=== PATIENT | female | born 1970 | race Caucasian/White ===

== ENCOUNTER 2016-05-02 17:08 | Outpatient (RCR) | payer OTHER ==
[2016-03-22 09:39] LABS: BASOPHILS % (AUTO) 1 % (0-10); EOSINOPHILS # (AUTO) 0.1 10^3/uL (0.0-0.3); EOSINOPHILS % (AUTO) 1 % (0-10); LYMPHOCYTES # (AUTO) 1.8 X 10^3 (1.0-4.0); LYMPHOCYTES % (AUTO) 29 % (12-44); MEAN CORPUSCULAR HEMOGLOBIN 32 PG (25-34); MEAN CORPUSCULAR HGB CONC 34 G/DL (32-36); MEAN CORPUSCULAR VOLUME 94 FL (80-99); MONOCYTES # (AUTO) 0.4 X 10^3 (0.0-1.0); MONOCYTES % (AUTO) 7 % (0-12); NEUTROPHILS # (AUTO) 3.9 X 10^3 (1.8-7.8); NEUTROPHILS % (AUTO) 62 % (42-75); PLATELET COUNT 271 10^3/uL (130-400); RED BLOOD COUNT 3.29 10^6/uL (4.35-5.85); RED CELL DISTRIBUTION WIDTH 12.6 % (10.0-14.5); WHITE BLOOD COUNT 6.2 10^3/uL (4.3-11.0)
[2016-03-22 10:01] LABS: ALANINE AMINOTRANSFERASE 16 U/L (0-55); ALBUMIN 4.2 G/DL (3.2-4.5); ANION GAP 7 MMOL/L (5-14); ASPARTATE AMINO TRANSFERASE 10 U/L (5-34); BILIRUBIN,TOTAL 0.2 MG/DL (0.1-1.0); BLOOD UREA NITROGEN 36 MG/DL (7-18); BUN/CREATININE RATIO 37; CALCIUM 9.3 MG/DL (8.5-10.1); CARBON DIOXIDE 25 MMOL/L (21-32); CHLORIDE 105 MMOL/L (98-107); CREATININE SERUM 0.98 MG/DL (0.60-1.30); GFR ESTIMATED > 60; GLUCOSE 103 MG/DL (70-105); POTASSIUM 5.6 MMOL/L (3.6-5.0); SODIUM 137 MMOL/L (135-145); TOTAL PROTEIN 6.6 G/DL (6.4-8.2)
[2016-03-22 10:18] LABS: ERYTHROCYTE SEDIMENTATION RATE 58 MM/HR (0-20)
[2016-04-29 13:16] LABS: BASOPHILS % (AUTO) 0 % (0-10); EOSINOPHILS # (AUTO) 0.1 10^3/uL (0.0-0.3); EOSINOPHILS % (AUTO) 1 % (0-10); LYMPHOCYTES % (AUTO) 30 % (12-44); MEAN CORPUSCULAR HEMOGLOBIN 31 PG (25-34); MEAN CORPUSCULAR HGB CONC 34 G/DL (32-36); MEAN CORPUSCULAR VOLUME 92 FL (80-99); MEAN PLATELET VOLUME 10.4 FL (7.4-10.4); MONOCYTES # (AUTO) 0.3 X 10^3 (0.0-1.0); MONOCYTES % (AUTO) 5 % (0-12); NEUTROPHILS # (AUTO) 4.3 X 10^3 (1.8-7.8); NEUTROPHILS % (AUTO) 65 % (42-75); PLATELET COUNT 246 10^3/uL (130-400); RED BLOOD COUNT 3.16 10^6/uL (4.35-5.85); RED CELL DISTRIBUTION WIDTH 12.2 % (10.0-14.5); WHITE BLOOD COUNT 6.7 10^3/uL (4.3-11.0)
[2016-04-29 13:48] LABS: ALANINE AMINOTRANSFERASE 11 U/L (0-55); ALBUMIN 4.1 G/DL (3.2-4.5); ANION GAP 7 MMOL/L (5-14); ASPARTATE AMINO TRANSFERASE 12 U/L (5-34); BILIRUBIN,TOTAL 0.2 MG/DL (0.1-1.0); BLOOD UREA NITROGEN 28 MG/DL (7-18); BUN/CREATININE RATIO 33; CALCIUM 9.3 MG/DL (8.5-10.1); CARBON DIOXIDE 24 MMOL/L (21-32); CHLORIDE 106 MMOL/L (98-107); CREATININE SERUM 0.85 MG/DL (0.60-1.30); GFR ESTIMATED > 60; GLUCOSE 111 MG/DL (70-105); POTASSIUM 5.1 MMOL/L (3.6-5.0); SODIUM 137 MMOL/L (135-145); TOTAL PROTEIN 6.4 G/DL (6.4-8.2)
[2016-04-29 15:30] LABS: %SAT TOTAL IRON BINDING CAPIC 24 % (15-50); TIBC 257 ug/dL (280-380)
[2016-04-29 16:29] LABS: UIBC 196 ug/dL (55-450)
[2016-04-30 07:12] LABS: FERRITIN 380 ng/mL (15-150)
[~2016-05-02 17:08] MED LIST: ALLO100T PO; ETD400T; LISI1TAB10 PO; LISI1TAB6 PO; LISI40TA PO; METF-380 PO; METH4TAB; MULT1CAP27 PO; NEBI5TAB8 PO; OMG1KC PO; TRAM50TA2 PO; UBID100C44 PO
== END 2016-06-20 | disposition home or self-care (01) ==
LOC: ONC 17:08
PROVIDERS: ATTEND Internal Medicine Hematology & Oncology
DX: D50.9 Iron deficiency anemia, unspecified (principal)
CPT/HCPCS: 36415; 80053; 82668; 82728; 83540; 85025; 85652; 99213

== ENCOUNTER 2019-03-29 17:40 | Emergency (ER) | payer OTHER ==
[~2019-03-29] VITALS: Ht 170.1 cm; Wt 79.3 kg
--- NOTE | 2019-03-29 18:24 | ED Cough/URI ---
General Chief Complaint: Cough/Cold/Flu Symptoms Stated Complaint: COUGH Nursing Triage Note: COUGH STARTED LAST WEEK, [facility] C[facility] ON FRIDAY DIAGNOSED WITH RESPITORY INFECTION, STARTED ON SYMBACORT, AMOXICILLIN, ALBUTEROL NEBULIZER TX AND MUCINEX. NOT ANY BETTER BY FRIDAY SO TO [facility] ABX CHANGED TO AZITHROMYCIN AND DELSYM. TODAY STILL NOT FEELING ANY BETTER QUESTIONING IF SHE MAY HAVE PNEUMONIA. Sepsis Screen: No Definite Risk History of Present Illness Date Seen by Provider: Mar 29, 2019 Time Seen by Provider: 18:00 Initial Comments This is a 49-year-old female reports having a cough for 7-10 days. Patient reports being evaluated by an urgent care on FridayMarch 26 and was prescribed a albuterol nebulizer treatments and amoxicillin. Patient reports that she had previously been taking tywv-dbn-svqtups Mucinex as well as Delsym. Patient states that she did not feel that she was getting better and return to the urgent care on Friday, March 28 and the antibiotic was changed to azithromycin. Patient continues to feel that she is not getting any better and this concerned that she might have developed pneumonia. Timing/Duration: changing over time Severity/Quality: mild, moderate, dry cough Prior Episodes/Possible Cause: no prior episodes Modifying Factors: Worse With Activity; Improves With Albuterol Nebulizer; Worse With Coughing Associated Symptoms: cough, shortness of breath Allergies and Home Medications Allergies Coded Allergies: No Known Drug Allergies (Verified , 10/13/15) Home Medications Albuterol Sulfate 1 Puff Puff, 2 PUFF INH Q4H 1 PUFF = 90 MCG Prescribed by: TAMARA TRACEY on 03/29/191911 Allopurinol 100 Mg Tablet, 100 MG PO DAILY, (Reported) Lisinopril 40 Mg Tablet, 40 MG PO DAILY, (Reported) Metformin Hcl 1,000 Mg Tablet, 1,000 MG PO BID WITH MEALS, (Reported) Multivitamin 1 Each Capsule, 1 EACH PO DAILY, (Reported) Nebivolol HCl 5 Mg Tablet, 5 MG PO HS, (Reported) [place] 3 Polyunsat Fatty Acids 1,000 Mg Cap, 1,000 MG PO DAILY, (Reported) Promethazine HCl/Codeine 5 Ml Syrup, 5 ML PO Q6H PRN for COUGH Prescribed by: TAMARA TRACEY on 03/29/191911 Ubidecarenone 100 Mg Capsule, 100 MG PO DAILY, (Reported) Patient Home Medication List Home Medication List Reviewed: Yes Review of Systems Review of Systems Constitutional: no symptoms reported, see HPI EENTM: see HPI, no symptoms reported Respiratory: see HPI, cough, wheezing Cardiovascular: no symptoms reported, see HPI Gastrointestinal: no symptoms reported, see HPI Genitourinary: no symptoms reported, see HPI Musculoskeletal: no symptoms reported, see HPI Skin: no symptoms reported, see HPI Psychiatric/Neurological: No Symptoms Reported, See HPI Hematologic/Lymphatic: No Symptoms Reported, See HPI Immunological/Allergic: no symptoms reported, see HPI All Other Systems Reviewed Negative Unless Noted: Yes Past Jbbjskk-Ahjuhp-Hpygyj Hx Past Med/Social Hx: Reviewed Nursing Past Med/Soc Hx Patient Social History Alcohol Use: Denies Use Recreational Drug Use: No Recent Foreign Travel: No Contact w/Someone Who Travel: No Recent Infectious Disease Expo: No Recent Hopitalizations: No Physical Abuse: No Sexual Abuse: No Mistreated: No Fear: No Immunizations Up To Date Tetanus Booster (TDap): More than 5yrs Date of Pneumonia Vaccine: Feb 09, 2019 Date of Influenza Vaccine: Feb 09, 2019 Past Medical History Surgeries: Yes (, MULTIPLE EYE SURGERIES) Section Respiratory: No Cardiac: Yes High Cholesterol, Hypertension Neurological: No : No Reproductive Disorders: No Genitourinary: No Gastrointestinal: No Musculoskeletal: No (leg cramps, muscle weakness) Endocrine: Yes Diabetes, Non-Insulin dep HEENT: Yes Cataract Cancer: No Psychosocial: No Integumentary: No Blood Disorders: No (ANEMIA) Physical Exam Vital Signs - First Documented 03/29/19 03/29/19 17:45 19:20 Temp 36.8 Pulse 87 Resp 18 B/P (MAP) 202/97 (132) Pulse Ox 99 O2 Delivery Room Air Capillary Refill : Less Than 3 Seconds Height: 5'7.00" Weight: 165lbs. 0.0oz. 74.248438ot; 27.00 BMI Method:Stated General Appearance: WD/WN, no apparent distress HEENT: PERRL/EOMI, normal ENT inspection, TMs normal, pharynx normal Neck: non-tender, full range of motion, supple, normal inspection Respiratory: chest non-tender, no respiratory distress, no accessory muscle use, rhonchi, wheezing (on expiration) Cardiovascular: normal peripheral pulses, regular rate, rhythm, no edema, no gallop, no JVD, no murmur Gastrointestinal: normal bowel sounds, non tender, soft, no pulsatile mass Extremities: normal range of motion, non-tender, normal inspection, no pedal edema, no calf tenderness Neurologic/Psychiatric: piping drafter II-XII nml as tested, no motor/sensory deficits, alert, normal mood/affect, oriented x 3 Skin: normal color, warm/dry Lymphatic: no adenopathy Progress/Results/Core Measures Suspected Sepsis Recent Fever Within 48 Hours: Yes Infection Criteria Present: Documented Infection New/Unexplained Altered Menta: No Sepsis Screen: No Definite Risk SIRS Temperature: Pulse: 87 Respiratory Rate: 18 Laboratory Tests 03/29/19 18:39: White Blood Count 6.1 Blood Pressure 202 /97 Mean: 132 Laboratory Tests 03/29/19 18:39: Creatinine 0.96, Platelet Count 240, Total Bilirubin 0.2 Results/Orders Lab Results Laboratory Tests Test 03/29/19 18:22 03/29/19 18:39 Range/Units Urine Color YELLOW Urine Clarity CLEAR Urine pH 5.5 5-9 Urine Specific [place] 1.025 H 1.016-1.022 Urine Protein 2+ H NEGATIVE Urine Glucose (UA) NEGATIVE NEGATIVE Urine Ketones NEGATIVE NEGATIVE Urine Nitrite NEGATIVE NEGATIVE Urine Bilirubin NEGATIVE NEGATIVE Urine Urobilinogen 0.2 < = 1.0 MG/DL Urine Leukocyte Esterase NEGATIVE NEGATIVE Urine RBC (Auto) 3+ H NEGATIVE Urine RBC 10-25 H /HPF Urine WBC NONE /HPF Urine Crystals NONE /LPF Urine Bacteria NEGATIVE /HPF Urine Casts PRESENT /LPF Urine Hyaline Casts 2-5 H /LPF Urine Mucus NEGATIVE /LPF Urine Culture Indicated NO White Blood Count 6.1 4.3-11.0 10^3/uL Red Blood Count 3.52 L 4.35-5.85 10^6/uL Hemoglobin 10.9 L 11.5-16.0 G/DL Hematocrit 33 L 35-52 % Mean Corpuscular Volume 92 80-99 FL Mean Corpuscular Hemoglobin 31 25-34 PG Mean Corpuscular Hemoglobin Concent 34 32-36 G/DL Red Cell Distribution Width 12.7 10.0-14.5 % Platelet Count 240 130-400 10^3/uL Mean Platelet Volume 11.2 H 7.4-10.4 FL Neutrophils (%) (Auto) 77 H 42-75 % Lymphocytes (%) (Auto) 13 12-44 % Monocytes (%) (Auto) 9 0-12 % Eosinophils (%) (Auto) 1 0-10 % Basophils (%) (Auto) 0 0-10 % Neutrophils # (Auto) 4.7 1.8-7.8 X 10^3 Lymphocytes # (Auto) 0.8 L 1.0-4.0 X 10^3 Monocytes # (Auto) 0.5 0.0-1.0 X 10^3 Eosinophils # (Auto) 0.1 0.0-0.3 10^3/uL Basophils # (Auto) 0.0 0.0-0.1 10^3/uL Sodium Level 139 135-145 MMOL/L Potassium Level 4.5 3.6-5.0 MMOL/L Chloride Level 103 98-107 MMOL/L Carbon Dioxide Level 25 21-32 MMOL/L Anion Gap 11 5-14 MMOL/L Blood Urea Nitrogen 14 7-18 MG/DL Creatinine 0.96 0.60-1.30 MG/DL Estimat Glomerular Filtration Rate > 60 BUN/Creatinine Ratio 15 Glucose Level 175 H 70-105 MG/DL Calcium Level 9.4 8.5-10.1 MG/DL Corrected Calcium 9.4 8.5-10.1 MG/DL Total Bilirubin 0.2 0.1-1.0 MG/DL Aspartate Amino Transf (AST/SGOT) 16 5-34 U/L Alanine Aminotransferase (ALT/SGPT) 13 0-55 U/L Alkaline Phosphatase 58 40-136 U/L Total Protein 7.5 6.4-8.2 GM/DL Albumin 4.0 3.2-4.5 GM/DL My Orders Orders - TAMARA TRACEY Chest Pa/Lat (2 View) (03/29/19 18:16) Cbc With Automated Diff (03/29/19 18:17) Comprehensive Metabolic Panel (03/29/19 18:17) Ua Culture If Indicated (03/29/19 18:17) Ed Iv/Invasive Line Start (03/29/19 18:17) Vital Signs/I&O 03/29/19 03/29/19 17:45 19:20 Temp 36.8 36.8 Pulse 87 82 Resp 18 18 B/P (MAP) 202/97 (132) 178/89 (132) Pulse Ox 99 99 O2 Delivery Room Air Capillary Refill : Less Than 3 Seconds Blood Pressure Mean: 132 POS Diagnostic Imaging Diagonstic Imaging: Xray Plain Films/CT/US/NM/MRI: chest Comments NAME: JERRY BULLARD [facility] REC#: [id number] PT STATUS: REG ER : 1970 PHYSICIAN: TAMARA TRACEY ADMIT DATE: 03/29/19/ER Signed POSDate of Exam:03/29/19 CHEST PA/LAT (2 VIEW) INDICATION: Cough COMPARISON: 02/13/2016 FINDINGS: Frontal and lateral views the chest demonstrate clear lungs bilaterally. The heart size is normal. There is no pneumothorax. Osseous structures are normal. IMPRESSION: No acute findings. Normal chest. Dictated by: Dictated on workstation # [id number] Dict: 03/29/191830 Trans: 03/29/191830 [facility] [id number] Interpreted by: MARU MARTIN Electronically signed by: MARU MARTIN 03/29/191830 Reviewed: Reviewed by Me Departure Impression Primary Impression: Bronchitis Additional Impression: Cough Disposition: 01 HOME, SELF-CARE Condition: Improved Departure-Patient Inst. Decision time for Depature: 19:00 Referrals: KEILA HUBBARD DO (PCP/Family) Primary Care Physician Patient Instructions: Cough, Adult (DC), Acute Bronchitis, Adult (DC) Add. Discharge Instructions: Increase water intake. Drink apple cider vinegar with the Mother, honey and lemon 4-6 times daily. Continue to take the Delsym and Muccinex, finish your Z-pack Stop the Albuterol nebulizer and use Ventolin inhaler 2 puffs every 4 hours, wait 5 min between puffs. Increase rest. Follow up with Dr. Hubbard if symptoms are not improving or worsen. Return to emergency department for fever greater than 101 not relieved by Tylenol or ibuprofen, difficulty breathing, or new urgent health care problems. All discharge instructions reviewed with patient and/or family. Voiced understanding. Scripts Promethazine HCl/Codeine (Prometh-Codein 6.25-10 mg/5 ml) 5 Ml Syrup 5 ML PO Q6H PRN for COUGH, #60 ML 0 Refills Prov: TAMARA TRACEY 03/29/19 Albuterol Sulfate (VENTOLIN HFA) 1 Puff Puff 2 PUFF INH Q4H, #1 INHALER 0 Refills 1 PUFF = 90 MCG Prov: TAMARA TRACEY 03/29/19 Copy Copies To 1: KEILA HUBBARD AMY ARNP Mar 29, 2019 18:23 POS
[2019-03-29 18:30] LABS: BILIRUBIN,URINE NEGATIVE (NEGATIVE); CLARITY,URINE CLEAR; COLOR,URINE YELLOW; GLUCOSE, URINE (UA) NEGATIVE (NEGATIVE); KETONES,URINE NEGATIVE (NEGATIVE); LEUKOCYTE ESTERASE ,URINE NEGATIVE (NEGATIVE); NITRITE,URINE NEGATIVE (NEGATIVE); PH,URINE 5.5 (5-9); PROTEIN,URINE 2+ (NEGATIVE)
--- NOTE | 2019-03-29 18:33 | Diagnostic Imaging Report ---
INDICATION: Cough COMPARISON: 02/13/2016 FINDINGS: Frontal and lateral views the chest demonstrate clear lungs bilaterally. The heart size is normal. There is no pneumothorax. Osseous structures are normal. IMPRESSION: No acute findings. Normal chest. Dictated by: Dictated on workstation # [id number]
[2019-03-29 18:39] LABS: BACTERIA,URINE NEGATIVE /HPF
[2019-03-29 18:48] LABS: BASOPHILS % (AUTO) 0 % (0-10); EOSINOPHILS # (AUTO) 0.1 10^3/uL (0.0-0.3); EOSINOPHILS % (AUTO) 1 % (0-10); HEMATOCRIT 33 % (35-52); HEMOGLOBIN 10.9 G/DL (11.5-16.0); LYMPHOCYTES # (AUTO) 0.8 X 10^3 (1.0-4.0); LYMPHOCYTES % (AUTO) 13 % (12-44); MEAN CORPUSCULAR HEMOGLOBIN 31 PG (25-34); MEAN CORPUSCULAR HGB CONC 34 G/DL (32-36); MEAN CORPUSCULAR VOLUME 92 FL (80-99); MEAN PLATELET VOLUME 11.2 FL (7.4-10.4); MONOCYTES # (AUTO) 0.5 X 10^3 (0.0-1.0); MONOCYTES % (AUTO) 9 % (0-12); NEUTROPHILS # (AUTO) 4.7 X 10^3 (1.8-7.8); NEUTROPHILS % (AUTO) 77 % (42-75); PLATELET COUNT 240 10^3/uL (130-400); RED CELL DISTRIBUTION WIDTH 12.7 % (10.0-14.5); WHITE BLOOD COUNT 6.1 10^3/uL (4.3-11.0)
--- NOTE | 2019-03-29 19:01 | NUR ---
report to charles campoverde at this time. care turned over.
[2019-03-29 19:05] LABS: ALANINE AMINOTRANSFERASE 13 U/L (0-55); ALKALINE PHOSPHATASE 58 U/L (40-136); BILIRUBIN,TOTAL 0.2 MG/DL (0.1-1.0); BUN/CREATININE RATIO 15; CALCIUM 9.4 MG/DL (8.5-10.1); CARBON DIOXIDE 25 MMOL/L (21-32); CHLORIDE 103 MMOL/L (98-107); CREATININE SERUM 0.96 MG/DL (0.60-1.30); GFR ESTIMATED > 60; GLUCOSE 175 MG/DL (70-105); POTASSIUM 4.5 MMOL/L (3.6-5.0); SODIUM 139 MMOL/L (135-145); TOTAL PROTEIN 7.5 GM/DL (6.4-8.2)
[2019-03-29] MEDS ORDERED: RT-ALBUINH INH (19:12)
[2019-03-29] MEDS ORDERED: PROM5SYR PO (19:12)
[2019-03-29 19:20] VITALS: BP 178/89
== END 2019-03-29 19:21 | disposition home or self-care (01) ==
LOC: EDUNIT# 17:40 → ER 17:42
DX: J40 Bronchitis, not specified as acute or chronic (principal); I10 Essential (primary) hypertension; E11.9 Type 2 diabetes mellitus without complications; D64.9 Anemia, unspecified; E78.00 Pure hypercholesterolemia, unspecified; Z79.84 Long term (current) use of oral hypoglycemic drugs
CPT/HCPCS: 36415; 71046; 80053; 81000; 85025

== ENCOUNTER 2020-08-12 02:19 | Emergency (ER) | payer OTHER ==
[~2020-08-12] VITALS: Ht 167.7 cm; Wt 79.3 kg
[~2020-08-12 02:19] MED LIST changes: -LISI1TAB10 PO; +LISI1TAB26 PO; -LISI40TA PO; +LISI40TA9 PO; +PROM5SYR PO; +RT-ALBUINH INH
[2020-08-12 02:38] LABS: BILIRUBIN,URINE NEGATIVE (NEGATIVE); CLARITY,URINE CLEAR; COLOR,URINE YELLOW; GLUCOSE, URINE (UA) 3+ (NEGATIVE); KETONES,URINE NEGATIVE (NEGATIVE); LEUKOCYTE ESTERASE ,URINE 1+ (NEGATIVE); NITRITE,URINE NEGATIVE (NEGATIVE); PROTEIN,URINE 1+ (NEGATIVE)
[2020-08-12 02:47] LABS: BACTERIA,URINE TRACE /HPF; YEAST,URINE FEW /HPF
--- NOTE | 2020-08-12 02:47 | ED GU-Female ---
General Stated Complaint: BLOOD IN URINE Source: patient History of Present Illness Date Seen by Provider: Aug 12, 2020 Time Seen by Provider: 02:30 Initial Comments PT ARRIVES VIA POV FROM HOME STATES JUST PRIOR TO ARRIVAL, SHE HAD SOME DISCOMFORT ON URINATION AND HAD BLOOD IN HER URINE--STATES SHE "FREAKED OUT" AND RUSHED HERE NO ABDOMINAL PAIN NO CHANGES IN CHRONIC LOWER BACK PAIN--SLIGHTLY MORE ON RIGHT--STATES IS NOT UNUSUAL FOR HER NO NAUSEA/VOMITING/DIARRHEA NO FEVER NO HISTORY OF SIMILAR LMP 1 WEEK AGO. NORMAL. NO CONTROL PCP: DR. SOLIS--HAS NOT SEEN IN 2-3 YEARS SKI LIFT OPERATOR: DR. ZARAGOZA IN [place] [facility] PROVIDER: DR. RONQUILLO IN [place] Allergies and Home Medications Allergies Coded Allergies: No Known Drug Allergies (Verified , 10/13/15) Home Medications Albuterol Sulfate 1 Puff Puff, 2 PUFF INH Q4H 1 PUFF = 90 MCG Prescribed by: TAMARA TRACEY on 03/29/191911 Allopurinol 100 Mg Tablet, 100 MG PO DAILY, (Reported) Lisinopril 40 Mg Tablet, 40 MG PO DAILY, (Reported) Metformin Hcl 1,000 Mg Tablet, 1,000 MG PO BID WITH MEALS, (Reported) Multivitamin 1 Each Capsule, 1 EACH PO DAILY, (Reported) Nebivolol HCl 5 Mg Tablet, 5 MG PO HS, (Reported) Nitrofurantoin Monohyd/M-Cryst 100 Mg Capsule, 1 TAB PO BID Prescribed by: SHAYY NAPIER on 08/12/20256 [place] 3 Polyunsat Fatty Acids 1,000 Mg Cap, 1,000 MG PO DAILY, (Reported) Phenazopyridine HCl 200 Mg Tablet, 1 TAB PO TID Prescribed by: SHAYY NAPIER on 08/12/20256 Promethazine HCl/Codeine 5 Ml Syrup, 5 ML PO Q6H PRN for COUGH Prescribed by: TAMARA TRACEY on 03/29/191911 Ubidecarenone 100 Mg Capsule, 100 MG PO DAILY, (Reported) Patient Home Medication List Home Medication List Reviewed: Yes Review of Systems Review of Systems Constitutional: no symptoms reported EENTM: no symptoms reported Respiratory: no symptoms reported Cardiovascular: no symptoms reported Gastrointestinal: no symptoms reported Genitourinary: see HPI, burning, dysuria, hematuria LMP: Aug 03, 2020 Musculoskeletal: see HPI Skin: no symptoms reported Psychiatric/Neurological: No Symptoms Reported Endocrine: No Symptoms Reported Hematologic/Lymphatic: No Symptoms Reported Past Lxdcoga-Lgxxxv-Bhnmuq Hx Past Med/Social Hx: Reviewed and Corrections made Patient Social History Alcohol Use: Denies Use Drug of Choice: DENIES Smoking Status: Never a Smoker Recent Hopitalizations: No Immunizations Up To Date Tetanus Booster (TDap): More than 5yrs Date of Pneumonia Vaccine: Feb 09, 2019 Date of Influenza Vaccine: Feb 09, 2019 Past Medical History Surgeries: Yes (, MULTIPLE EYE SURGERIES-VITRECTOMY; CATARACT SURGERY; C- SECTION X 1) Section, Eye Surgery, Gallbladder Respiratory: No Cardiac: Yes High Cholesterol, Hypertension Neurological: No Reproductive Disorders: No Genitourinary: No Gastrointestinal: Yes (CHOLECYSTECTOMY) Gall Bladder Disease Musculoskeletal: No (leg cramps, muscle weakness) Endocrine: Yes Diabetes, Non-Insulin dep HEENT: Yes (DIABETIC RETINOPATHY; S/P VITRECTOMY; BILAT CATARACT SURGERY) Cataract Cancer: No Psychosocial: No Integumentary: No Blood Disorders: Yes (ANEMIA) Physical Exam Vital Signs Vital Signs - First Documented 08/12/20 02:30 Temp 36.9 Pulse 81 Resp 20 B/P (MAP) 209/94 (132) Pulse Ox 100 Capillary Refill : Height, Weight, BMI Height: 5'7.00" Weight: 165lbs. 0.0oz. 74.521623pt; 27.00 BMI Method:Stated General Appearance: WD/WN, no apparent distress, other (WALKS UPRIGHT AND MOVES WITHOUT DIFFICULTY. LAYS FLAT ON BED WITHOUT ANY EVIDENCE OF DISCOMFORT OR DISTRESS. ) Neck: normal inspection Cardiovascular: regular rate, rhythm, no murmur Respiratory: normal breath sounds, no respiratory distress, no accessory muscle use Gastrointestinal: non tender, soft Back: no CVA tenderness, no vertebral tenderness Extremities: normal inspection Neurologic/Psychiatric: canvas baster jumpbasting II-XII nml as tested, no motor/sensory deficits, alert, normal mood/affect (SOMEWHAT ANXIOUS), oriented x 3 Skin: normal color, warm/dry Progress/Results/Core Measures Suspected Sepsis SIRS Temperature: Pulse: Respiratory Rate: Blood Pressure / Mean: Results/Orders Lab Results Laboratory Tests Test 08/12/20 02:31 Range/Units Urine Color YELLOW Urine Clarity CLEAR Urine pH 6.0 5-9 Urine Specific [place] 1.010 L 1.016-1.022 Urine Protein 1+ H NEGATIVE Urine Glucose (UA) 3+ H NEGATIVE Urine Ketones NEGATIVE NEGATIVE Urine Nitrite NEGATIVE NEGATIVE Urine Bilirubin NEGATIVE NEGATIVE Urine Urobilinogen 0.2 < = 1.0 MG/DL Urine Leukocyte Esterase 1+ H NEGATIVE Urine RBC (Auto) 3+ H NEGATIVE Urine RBC 5-10 H /HPF Urine WBC 10-25 H /HPF Urine Squamous Epithelial Cells 5-10 /HPF Urine Crystals NONE /LPF Urine Bacteria TRACE /HPF Urine Casts NONE /LPF Urine Mucus SMALL H /LPF Urine Yeast FEW H /HPF Urine Culture Indicated YES Urine Test NEGATIVE NEGATIVE My Orders Orders - SHAYY NAPIER DO Ua Culture If Indicated (08/12/20 02:32) Hcg,Qualitative Urine (08/12/20 02:35) Urine Culture (08/12/20 02:31) Rx-Nitrofurantoin [place] (Rx-Macrobid) (08/12/20 02:55) Phenazopyridine Tablet (Pyridium Tablet) (08/12/20 03:00) Medications Given in ED Current Medications Medications Dose Ordered Sig/Don Route Start Time Stop Time Status Last Admin Dose Admin Phenazopyridine HCl 200 mg ONCE ONCE PO 08/12/20 03:00 08/12/20 03:01 DC 08/12/20 03:24 200 MG Vital Signs/I&O 08/12/20 08/12/20 02:30 03:25 Temp 36.9 Pulse 81 72 Resp 20 18 B/P (MAP) 209/94 (132) 165/73 Pulse Ox 100 99 Capillary Refill : Progress Note : Progress Note DISCUSSED FURTHER TESTING INCLUDING LAB AND CT SCAN, OPTS TO TRY ANTIBIOTICS FI RST, SHE DOES NOT HAVE SEVERE BACK OR ABDOMINAL PAIN OR NAUSEA, VOMITING OR FEVER, ETC. PT ADVISED TO RETURN TO ER IF SHE DEVELOPS ANY NEW OR WORSENING SYMPTOMS Departure Impression Primary Impression: Urinary tract infection Additional Impression: Acute hemorrhagic cystitis Disposition: 01 HOME, SELF-CARE Condition: Stable Departure-Patient Inst. Referrals: KIMBERLY ZARAGOZA DO (PCP) Primary Care Physician KEILA SOLIS DO (Family) Primary Care Physician Patient Instructions: Urinary Tract Infection, Adult (DC), Blood in the Urine (Hematuria), Adult (DC) Add. Discharge Instructions: LOTS OF CLEAR LIQUIDS CONTINUE YOUR REGULAR MEDICATIONS PRESCRIBED FOLLOW UP WITH DR. SOLIS IN 1 WEEK FOR RECHECK, RETURN TO ER IF SYMPTOMS WORSEN Scripts Nitrofurantoin Monohyd/M-Cryst (Macrobid 100 mg Capsule) 100 Mg Capsule 1 TAB PO BID, #20 CAP Prov: SHAYY NAPIER DO 08/12/20 Phenazopyridine HCl (Pyridium) 200 Mg Tablet 1 TAB PO TID, #15 TAB Prov: SHAYY NAPIER DO 08/12/20 SHAYY NAPIER DO Aug 12, 2020 02:46
[2020-08-12] MEDS ORDERED: RX-NITROFURANTOIN 100 MG (MACROBID) CAP PPK#2 PO STA (02:55)
[2020-08-12] MEDS ORDERED: PHEN-640 PO (02:57)
[2020-08-12] MEDS ORDERED: NITR-65 PO (02:57)
[2020-08-12] MEDS ORDERED: PHENAZOPYRIDINE 100 MG (PYRIDIUM) TABLET PO ONE (03:00)
[2020-08-12 03:25] VITALS: BP 165/73
== END 2020-08-12 03:25 | disposition home or self-care (01) ==
LOC: EDUNIT# 02:19 → ER 02:23
DX: N30.01 Acute cystitis with hematuria (principal); I10 Essential (primary) hypertension; E11.9 Type 2 diabetes mellitus without complications; E78.00 Pure hypercholesterolemia, unspecified; Z79.84 Long term (current) use of oral hypoglycemic drugs; Z32.02 Encounter for pregnancy test, result negative
CPT/HCPCS: 81000; 84703; 87088; 99283

== ENCOUNTER → 2020-12-08 | Outpatient (CLI) | payer OTHER ==
[~2020-12-08] MED LIST changes: +NITR-65 PO; +PHEN-640 PO
--- NOTE | 2020-12-08 16:26 | Diagnostic Imaging Report ---
PROCEDURE: US Thyroid. TECHNIQUE: Multiple real-time grayscale images were obtained of the thyroid in various projections. INDICATION: Thyromegaly. CORRELATION is made to thyroid ultrasound from 02/01/2016. The right lobe of the thyroid measures 4.2 x 1.9 x 2.0 cm and the left lobe measures 3.5 x 1.8 x 2.1 cm. Isthmus is 4 mm in thickness. Both lobes of the thyroid appear to be fairly homogeneous. There is a small nodule in the lower pole right lobe approximately 7 mm x 3 mm x 7 mm which appears be mixed solid and cystic. This is not definitely seen on prior exam. No other masses are seen. No dominant thyroid nodule is identified. IMPRESSION: Subcentimeter nodule lower pole right lobe of the thyroid. The study is otherwise unremarkable. Dictated by: Dictated on workstation # [id number]
== END ==
LOC: RAD 14:15
PROVIDERS: ATTEND Nurse Practitioner Family
DX: E04.1 Nontoxic single thyroid nodule (principal)
CPT/HCPCS: 76536

== ENCOUNTER 2021-06-17 05:16 | Emergency (ER) | payer OTHER ==
[~2021-06-17] VITALS: Ht 168 cm; Wt 80.0 kg
[~2021-06-17 05:16] MED LIST changes: -LISI1TAB26 PO; +LISI1TAB48 PO
[2021-06-17] MEDS ORDERED: LOVA10TA (05:31)
[2021-06-17] MEDS ORDERED: NEBI10TA11 (05:31)
[2021-06-17] MEDS ORDERED: DEXA2TAB (05:31)
[2021-06-17] MEDS ORDERED: HYDR-3922 (05:31)
--- NOTE | 2021-06-17 05:43 | ED General ---
General Chief Complaint: Cardiac/General Problems Stated Complaint: HIGH BP 176/105;HEADACHE Nursing Triage Note: C/O HIGH BLOOD PRESSURE, INTERMITTANT FRONTAL HEADACHE SINCE APPROX. 2300 06/16/21 Source of Information: Patient Exam Limitations: No Limitations (KADI PIZANO MD) History of Present Illness Date Seen by Provider: Jun 17, 2021 Time Seen by Provider: 05:30 Initial Comments Patient is a 51-year-old female who presents to the emergency room with a chief complaint of crazy high blood pressure since last night around 11 PM. Patient is day 10 of Covid today. She is recently been on Decadron 6 mg daily, has 2 days left. She is normally on Bystolic 10 mg twice a day and hydralazine 10 mg twice a day with relatively good control of her blood pressure. She has some degree of kidney issues, does not follow with a relief pharmacist. She states her headache is frontal. She has taken some Tylenol is not really helped much. Patient states she has not rested much this evening. She denies any unusual vision changes or speech difficulty. No numbness weakness or tingling in any of her extremities. She is not having chest pain or shortness of breath. She is not having abdominal pain, nausea, vomiting or diarrhea. She has had some urinary frequency without dysuria or urgency. No black or bloody stools. No swelling in her legs or cramping in her calves. She has not missed or skipped any of her blood pressure medications recently. She did take a round of Paxil bed for her Covid. She is on azithromycin. All other review of systems reviewed and negative except as stated. Timing/Duration: 12-24 Hours Severity: Moderate Associated Systoms: Headaches (KADI PIZANO MD) Allergies and Home Medications Allergies Coded Allergies: No Known Drug Allergies (Verified , 10/13/15) Patient Home Medication List Home Medication List Reviewed: Yes (KADI PIZANO MD) Albuterol Sulfate (Ventolin Hfa) 1 Puff Puff, 2 PUFF INH Q4H Prescribed by: TAMARA TRACEY on 03/29/191911 Allopurinol (Allopurinol) 100 Mg Tablet, 100 MG PO DAILY, (Reported) Entered as Reported by: MADINA MCGHEE on 10/12/15 110 Dexamethasone (Dexamethasone) 2 Mg Tablet, (Reported) Entered as Reported by: DAYANA NICOLE on 06/17/21530 Last Action: New Order Hydralazine HCl (Hydralazine HCl) 10 Mg Tablet, (Reported) Entered as Reported by: DAYANA NICOLE on 06/17/21530 Last Action: New Order Lovastatin (Lovastatin) 10 Mg Tablet, (Reported) Entered as Reported by: DAYANA NICOLE on 06/17/21530 Last Action: New Order Metformin Hcl (Metformin 1000 Mg) 1,000 Mg Tablet, 1,000 MG PO BID WITH MEALS, (Reported) Entered as Reported by: ELENA LINARES on 07/12/131931 Multivitamin (Multivitamins) 1 Each Capsule, 1 EACH PO DAILY, (Reported) Entered as Reported by: MADINA MCGHEE on 10/12/15 110 Nebivolol HCl (Bystolic) 5 Mg Tablet, 5 MG PO HS, (Reported) Entered as Reported by: MADINA MCGHEE on 10/12/15 105 Nebivolol HCl (Nebivolol HCl) 10 Mg Tablet, (Reported) Entered as Reported by: DAYANA NICOLE on 06/17/21530 Last Action: New Order [place] 3 Polyunsat Fatty Acids (Fish Oil 1,000 mg Capsule) 1,000 Mg Cap, 1,000 MG PO DAILY, (Reported) Entered as Reported by: MADINA MCGHEE on 10/12/15 110 Promethazine HCl/Codeine (Prometh-Codein 6.25-10 mg/5 ml) 5 Ml Syrup, 5 ML PO Q6H PRN for COUGH Prescribed by: TAMARA TRACEY on 03/29/191911 Ubidecarenone (Co Q-10) 100 Mg Capsule, 100 MG PO DAILY, (Reported) Entered as Reported by: MADINA MCGHEE on 10/12/15 110 Discontinued Medications Lisinopril (Lisinopril) 40 Mg Tablet, 40 MG PO DAILY, (Reported) Discontinued Reason: No Longer Taking Entered as Reported by: MADINA MCGHEE on 11/01/15 1000 Last Action: Discontinued Nitrofurantoin Monohyd/M-Cryst (Macrobid 100 mg Capsule) 100 Mg Capsule, 1 TAB PO BID Discontinued Reason: No Longer Taking Prescribed by: SHAYY NAPIER on 08/12/20256 Last Action: Discontinued Phenazopyridine HCl (Pyridium) 200 Mg Tablet, 1 TAB PO TID Discontinued Reason: No Longer Taking Prescribed by: SHAYY NAPIER on 08/12/20256 Last Action: Discontinued Review of Systems Review of Systems Constitutional: see HPI EENTM: no symptoms reported Respiratory: no symptoms reported Cardiovascular: other (High blood pressure) Gastrointestinal: no symptoms reported Genitourinary: no symptoms reported Musculoskeletal: no symptoms reported Skin: no symptoms reported Psychiatric/Neurological: Headache; Denies Numbness, Denies Paresthesia, Denies Tingling, Denies Tremors, Denies Weakness (KADI PIZANO MD) All Other Systems Reviewed Negative Unless Noted: Yes (KADI PIZANO MD) Past Kwpkeid-Vopjlj-Pbdznp Hx Patient Social History Tobacco Use?: No Substance use?: No Alcohol Use?: No Pt feels they are or have been: No (KADI PIZANO MD) Immunizations Up To Date Tetanus Booster (TDap): More than 5yrs First/Initial COVID19 Vaccinat: JUN 13 2020 Second COVID19 Vaccination Al: 07/30 COVID19 Vaccine Wagon Driller: MODERNNicole (KADI PIZANO MD) Past Medical History Surgery/Hospitalization HX: HTN, HIGH CHOLESTEROL, NIDDM, ANEMIA, MULTIPLE EYE SURGERIES, C-SECT, CHOLECYSTECTOMY. Surgeries: Yes (, MULTIPLE EYE SURGERIES-VITRECTOMY; CATARACT SURGERY; C- SECTION X 1) Section, Eye Surgery, Gallbladder Respiratory: No Cardiac: Yes High Cholesterol, Hypertension Neurological: No Reproductive Disorders: No Genitourinary: No Gastrointestinal: Yes (CHOLECYSTECTOMY) Gall Bladder Disease Musculoskeletal: No (leg cramps, muscle weakness) Endocrine: Yes Diabetes, Non-Insulin dep HEENT: Yes (DIABETIC RETINOPATHY; S/P VITRECTOMY; BILAT CATARACT SURGERY) Cataract Cancer: No Psychosocial: No Integumentary: No Blood Disorders: Yes (ANEMIA) (KADI PIZANO MD) Physical Exam Vital Signs Vital Signs - First Documented 06/17/21 05:25 Temp 36.5 Pulse 80 Resp 14 B/P (MAP) 210/117 (148) Pulse Ox 97 O2 Delivery Room Air ([facility]) Vital Signs Capillary Refill : Less Than 3 Seconds (KADI PIZANO MD) Height, Weight, BMI Height: 5'7.00" Weight: 165lbs. 0.0oz. 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, 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 Norm as Tested, Other (Tongue is midline, no nystagmus, 2+ DTRs bilateral patella) Skin: Normal Color, Warm/Dry (KADI PIZANO MD) Progress/Results/Core Measures Suspected Sepsis SIRS Temperature: Pulse: 80 Respiratory Rate: 14 Blood Pressure 210 /117 Mean: 148 Laboratory Tests 06/17/21 05:50: (KADI PIZANO MD) Results/Orders Lab Results Laboratory Tests Test 06/17/21 05:50 Range/Units Sodium Level 130 L 135-145 MMOL/L Potassium Level 4.2 3.6-5.0 MMOL/L Chloride Level 94 L 98-107 MMOL/L Carbon Dioxide Level 22 21-32 MMOL/L Anion Gap 14 5-14 MMOL/L Blood Urea Nitrogen 47 H 7-18 MG/DL Creatinine 1.23 0.60-1.30 MG/DL Estimat Glomerular Filtration Rate 53 BUN/Creatinine Ratio 38 Glucose Level 389 H 70-105 MG/DL Calcium Level 8.7 8.5-10.1 MG/DL ([facility]) Medications Given in ED Current Medications Medications Dose Ordered Sig/Don Route Start Time Stop Time Status Last Admin Dose Admin Acetaminophen 1,000 mg ONCE ONCE PO 06/17/21 05:45 06/17/21 05:46 DC 06/17/21 05:52 1,000 MG Hydralazine HCl 10 mg ONCE ONCE IV 06/17/21 05:45 06/17/21 05:46 DC 06/17/21 05:51 10 MG ([address] [facility]) Vital Signs/I&O 06/17/21 05:25 Temp 36.5 Pulse 80 Resp 14 B/P (MAP) 210/117 (148) Pulse Ox 97 O2 Delivery Room Air ([facility]) Vital Signs/I&O Capillary Refill : Less Than 3 Seconds (KADI PIZANO MD) Blood Pressure Mean: 148 Progress Note : Time: 06:03 Progress Note Care passed to Dr. Campbell at shift change with chemistry pending and disposition pending (KADI PIZANO MD) Progress Note : Time: 06:37 Progress Note Assumed care of the patient at shift change. She is here for hypertensive urgency with a mild headache. Hydralazine was given. She has COVID and was put on steroids but does not meet any criteria for which she might derive benefit from steroid. She certainly may be experiencing elevated blood pressure from the steroid so we will encourage her to discontinue that. After the dose of hydralazine her blood pressure is down to 146/68. We will allow her to return home. Return precautions were given. 5 units of regular insulin were given and she was encouraged to go home and get something to eat and follow-up with her primary care doctor next week if her blood pressure is not improving. ([facility]) Departure Impression Primary Impression: Hypertensive urgency Disposition: 01 HOME, SELF-CARE Condition: Stable Departure-Patient Inst. Decision time for Depature: 06:37 ([address] [facility]) Referrals: ANNA BULLARD DO (PCP) Primary Care Physician KIMBERLY ZARAGOZA DO (Family) Primary Care Physician Patient Instructions: High Blood Pressure (DC) Add. Discharge Instructions: Continue taking your blood pressure medicine as prescribed. I would recommend you discontinue the use of the steroid at this time as it is likely the crum contributor to your elevated blood pressure. Tylenol and Motrin as necessary for headache fever or body aches. Return to the ER promptly if you experience shortness of air and oxygen saturations below 90% while at rest. You may continue taking your PaxlovidAll discharge instructions reviewed with patient and/or family. Voiced understanding. KADI PIZANO MD Jun 17, 2021 05:[address] [facility] Jun 17, 2021 06:39
[2021-06-17] MEDS ORDERED: hydrALAZINE (APESOLINE) 20 MG/ML VIAL IV ONE (05:45)
[2021-06-17] MEDS ORDERED: ACETAMINOPHEN 500 MG TAB (TYLENOL) PO ONE (05:45)
[2021-06-17 06:08] LABS: POTASSIUM 4.2 MMOL/L (3.6-5.0)
[2021-06-17 06:09] LABS: CALCIUM 8.7 MG/DL (8.5-10.1)
[2021-06-17 06:13] LABS: CREATININE SERUM 1.23 MG/DL (0.60-1.30)
[2021-06-17 06:56] VITALS: BP 169/76
[2021-06-17] MEDS ORDERED: inSUlin (REGULAR) HUMAN 1 UNIT/0.01 ML (CHARGE PER UNIT) SC ONE (07:00)
== END 2021-06-17 06:58 | disposition home or self-care (01) ==
LOC: EDUNIT# 05:16 → ER 05:20
DX: I10 Essential (primary) hypertension (principal); E11.9 Type 2 diabetes mellitus without complications; E78.00 Pure hypercholesterolemia, unspecified; Z79.84 Long term (current) use of oral hypoglycemic drugs
CPT/HCPCS: 36415; 80048

== ENCOUNTER → 2021-07-13 | Outpatient (CLI) | payer OTHER ==
[~2021-07-13] MED LIST changes: +DEXA2TAB; +HYDR-3922; +LOVA10TA; +NEBI10TA11
--- NOTE | 2021-07-13 11:22 | Diagnostic Imaging Report ---
PROCEDURE: US Thyroid. TECHNIQUE: Multiple real-time grayscale images were obtained of the thyroid in various projections. INDICATION: Right thyroid nodule. COMPARISON: 12/08/2020 FINDINGS: The right thyroid lobe measures 5.0 x 1.7 x 1.7 cm in size. Echogenicity and vascularity are normal. An isoechoic solid nodule at the inferior right thyroid measuring up to 8 mm in size. The isthmus measures 4 mm in thickness. The left thyroid lobe measures 4 x 1.4 x 2 cm in size. Echogenicity and vascularity are normal. IMPRESSION: 1. Subcentimeter nodule in the inferior right thyroid does not qualify for follow-up based on TI-RADS criteria. Dictated by: Dictated on workstation # [id number]
== END ==
LOC: RAD 10:00
PROVIDERS: ATTEND Otolaryngology Otolaryngology/Facial Plastic Surgery
DX: E04.1 Nontoxic single thyroid nodule (principal)
CPT/HCPCS: 76536

== ENCOUNTER → 2022-07-19 | Outpatient (CLI) | payer OTHER ==
--- NOTE | 2022-07-19 17:16 | Diagnostic Imaging Report ---
PROCEDURE: US Thyroid. TECHNIQUE: Multiple real-time grayscale images were obtained of the thyroid in various projections. INDICATION: Thyroid nodule follow-up. FINDINGS: Right lobe of the thyroid measures 5.0 x 2.1 x 1.8 cm. Left lobe measures 3.8 x 1.2 x 2.0 cm. The isthmus is 2 mm in thickness. There is a 10 x 9 x 5 mm solid nodule on the surface of the lower pole of the right lobe of the thyroid. This is not appreciably changed from previous exam done on 07/13/2021. IMPRESSION: Stable isoechoic nodule in right lobe of the thyroid. This has remained stable since 12/08/2020. Consider follow-up in 1-2 years. Dictated by: Dictated on workstation # [id number]
== END ==
LOC: RAD 12:11
PROVIDERS: ATTEND Physician Assistant
DX: E04.1 Nontoxic single thyroid nodule (principal)
CPT/HCPCS: 76536

== ENCOUNTER → 2022-11-13 | Outpatient (CLI) | payer OTHER ==
--- NOTE | 2022-11-13 14:48 | Diagnostic Imaging Report ---
PROCEDURE: US Renal Bilateral. TECHNIQUE: Multiple real-time grayscale images were obtained over the kidneys in various projections bilaterally. INDICATION: Chronic kidney disease. COMPARISON: 02/13/2016. FINDINGS: Right kidney: Length (cm): 11.6 Hydronephrosis: None Cortex: Normal thickness and echogenicity Other: No shadowing stones or solid masses. Left kidney: Length (cm): 10.6 Hydronephrosis: None Cortex: Normal thickness and echogenicity Other: No shadowing stones or solid masses. Bladder: Prevoid volume (mL): 406 Postvoid volume is 0 mL Ureteral jets: Bilateral ureteral jets are seen Other: No filling defects or mass seen. IMPRESSION: 1. No acute renal abnormality. Dictated by: Dictated on workstation # [id number]
== END ==
LOC: RAD 14:00
PROVIDERS: ATTEND Internal Medicine Nephrology
DX: E11.22 Type 2 diabetes mellitus with diabetic chronic kidney disease (principal); I12.9 Hypertensive chronic kidney disease with stage 1 through stage 4 chronic kidney disease, or unspecified chronic kidney disease; N18.2 Chronic kidney disease, stage 2 (mild); R80.8 Other proteinuria; R53.83 Other fatigue; E79.0 Hyperuricemia without signs of inflammatory arthritis and tophaceous disease; D63.1 Anemia in chronic kidney disease; U07.1 COVID-19; E04.1 Nontoxic single thyroid nodule; E78.00 Pure hypercholesterolemia, unspecified
CPT/HCPCS: 76770